=== PATIENT | male | born 1935 | race Caucasian/White ===

== ENCOUNTER 2018-02-23 14:31 | Inpatient (IN) ==
[2018-02-23 15:57] LABS: Hematocrit 42.4 % (37.5-50.1); Hemoglobin 14.5 g/dL (12.9-16.9); Mean Corpuscular HGB Conc 34.2 g/dL (31.6-35.5); Mean Corpuscular Hemoglobin 33.3 pg (28.0-33.3); Mean Corpuscular Volume 97.5 fL (83.0-100.0); Mean Platelet Volume 8.9 fL (9.4-12.4); Platelet Count 276 K/mcL (140-400); Red Blood Count 4.35 M/mcL (4.19-5.50); Red Cell Distribution Width 13.7 % (11.5-14.5)
[2018-02-23 16:15] LABS: Bilirubin,Urine Negative (Negative); Blood,Urine Small (Negative); Clarity,Urine Clear (Clear); Color,Urine Yellow (Yellow); Glucose,Urine (UA) Normal (Normal); Ketones,Urine Negative (Negative); Leukocyte Esterase,Urine Negative (Negative); Nitrite,Urine Negative (Negative); Protein,Urine Negative (Neg-Trace); Specific Gravity,Urine 1.012 (1.010-1.025); Urobilinogen,Urine Normal (Normal)
[2018-02-23 16:18] LABS: Bacteria,Urine None Seen per hpf (None-Few); Hyaline Casts,Urine None Seen per lpf (None-Few); RBC,Urine 0-3 per hpf (0-3); Squamous Epithelial Cell,Urine None Seen per lpf (None-Few); WBC,Urine 0-3 per hpf (0-3)
[2018-02-23 16:20] LABS: Alanine Aminotransferase 26 Units/L (7-52); Albumin 4.2 g/dL (3.5-5.7); Albumin/Globulin Ratio 1.4 (1.1-2.2); Alkaline Phosphatase 71 Units/L (34-104); Aspartate Amino Transferase 27 Units/L (13-39); BUN/Creatinine Ratio 16 (6-26); Bilirubin,Direct 0.2 mg/dL (0.0-0.2); Bilirubin,Indirect 0.5 mg/dL (0.0-1.2); Bilirubin,Total 0.7 mg/dL (0.3-1.0); Blood Urea Nitrogen 16 mg/dL (8-23); Calcium 9.9 mg/dL (8.6-10.3); Carbon Dioxide 27 mEq/L (23-29); Chloride 100 mEq/L (98-107); Glucose 132 mg/dL (70-105); Lipase 17 Units/L (11-82); Osmolality,Calculated 289 (280-300); Potassium 3.6 mEq/L (3.5-5.1); Sodium 138 mEq/L (136-145); Total Protein 7.2 g/dL (6.4-8.9); eGFR For African Americans > 60 (> 60); eGFR For Non-African Americans > 60 (> 60)
[2018-02-23] MEDS ORDERED: Isovue-370 500 ML INFUS..BTL IV ONE (18:01)
[2018-02-23] MEDS ORDERED: Ondansetron ODT 4 MG TAB.RAPDIS SL ONE (18:27)
--- NOTE | 2018-02-23 18:27 | Emergency Department Note ---
Disposition Clinical Impression: Abdominal pain Qualifiers: Abdominal location: upper abdomen, unspecified Qualified Code(s): R10.10 - Upper abdominal pain, unspecified Disposition: Admitted As Inpatient Condition: Good Abdominal Pain HPI - General Chief Complaint: ED Abdominal Pain Stated Complaint: "Epigastiric Pain/Nausea" Source: patient, family Limitations: no limitations Nursing Notes Reviewed: Yes Vital Signs Reviewed: Yes - History of Present Illness HPI Narrative: This is an 82 year-old male with history of HTN and IDDM who presents with epigastric abdominal pain, nonradiating and waxing/waning in intensity for the past 10 hours. He reports mild nausea. Denies any vomiting, constipation, diarrhea, blood in stool, or urinary symptoms. Patient is s/p charles and inguinal hernia repair. At the time of evaluation, the pain is quite mild. Pt Subjective Complaint: abdominal pain Onset (ago): hour(s) Consistency: intermittent Location: epigastric Pain Severity: moderate Pain Scale: 5 Quality: fullness, sharp Radiation: none Migration to: no migration Improves with: nothing Worsens with: nothing Associated symptoms: Denies: nausea, vomiting, fever, dysuria, hematemesis, hematochezia, melena - Related Data Home Medications Medication Instructions Recorded Confirmed Aspirin [Lo-Dose Aspirin EC] 81 mg PO DAILY 02/23/18 02/23/18 Atorvastatin Calcium [Lipitor] 20 mg PO DAILY 02/23/18 02/23/18 Buspirone HCl [Buspar] 10 mg PO BID 02/23/18 02/23/18 Diltiazem HCl [Diltiazem 24Hr Cd] 240 mg PO DAILY 02/23/18 02/23/18 Folic Acid 1 mg PO DAILY 02/23/18 02/23/18 Methotrexate [Otrexup] 15 mg PO ERICKSON 02/23/18 02/23/18 Potassium Chloride [Klor-Con 10] 10 meq PO DAILY 02/23/18 02/23/18 Valsartan/Hydrochlorothiazide 1 tab PO DAILY 02/23/18 02/23/18 [Diovan Hct 320-25 mg Tablet] metFORMIN [Glucophage] 500 mg PO BID 02/23/18 02/23/18 Previous Rx's Medication Instructions Recorded Omeprazole [PriLOSEC] 40 mg PO DAILY #30 cap 02/25/18 Allergies Allergy/AdvReac Type Severity Reaction Status Date / Time No Known Allergies Allergy Verified 01/10/16 09:10 All systems ED: reviewed and negative except as stated. Constitutional: Denies: fever Cardiovascular: Denies: chest pain, palpitations Respiratory: Denies: dyspnea Gastrointestinal: Reports: as per HPI, abdominal pain, nausea. Denies: vomiting , diarrhea, constipation, hematemesis, melena, hematochezia Genitourinary: Denies: dysuria Musculoskeletal: Denies: back pain Abdominal Pain PMH - Past Medical History Medical history: Reports: diabetes, GERD, hyperlipidemia, hypertension Male Surgical History: Reports: other Psychiatric history: Reports: anxiety - Social History Smoking status: Former smoker Alcohol use: Reports: none Drug use: Reports: none Physical Exam - General Limitations: no limitations General appearance: alert, in no apparent distress - Head Head exam: atraumatic - Eye Eye exam: Present: normal appearance. Absent: scleral icterus - ENT ENT exam: normal exam, mucous membranes moist - Neck Neck exam: Present: normal inspection - Respiratory Respiratory exam: Present: normal lung sounds bilaterally. Absent: respiratory distress, wheezes - Cardiovascular Cardiovascular exam: Present: regular rate, normal rhythm, normal heart sounds - Abdominal Exam Abdominal exam: Present: soft, Non-Tender. Absent: distention, guarding, rebound, rigidity - Extremities Exam Extremities exam: Present: normal inspection - Neurological Exam Neurological exam: Present: alert, oriented X3. Absent: motor sensory deficit - Psychiatric Psychiatric exam: Present: normal affect, normal mood - Skin Skin exam: Present: warm, dry, intact Course - Reevaluation(s) Reevaluation #1: Updated patient on test results. He remains comfortable, minimal abdominal pain at this time. Time: 19:02 Vital Signs Temperature 97.9 F 02/23/18 14:39 Pulse Rate 105 02/23/18 14:39 Respiratory Rate 16 02/23/18 14:39 Blood Pressure 177/103 02/23/18 14:39 O2 Sat by Pulse Oximetry 93 02/23/18 14:39 Temperature 97.6 F 02/25/18 14:42 Pulse Rate 80 02/25/18 14:42 Respiratory Rate 15 02/25/18 14:42 Blood Pressure 143/87 02/25/18 14:42 O2 Sat by Pulse Oximetry 94 02/25/18 14:42 Oxygen Delivery Oxygen Delivery Room Air Abdominal Pain - MDM Narrative Medical decision making narrative: 18:50 - As initial CT raised the possibility of perforated duodenal ulcer, we will rescan, this time with oral contrast. At shift change, I will be signing patient's care over to Dr. Bullard to receive CT results, re-assess patient, and determine disposition. - Lab Data Lab results reviewed: Yes I reviewed the patient's lab results. Result diagrams: 02/24/18 04:37 02/24/18 04:37 Lab Results 02/23/18 02/23/18 02/23/18 Range/Units 15:40 15:40 15:54 WBC 12.1 H (4.3-11.1) K/mcL RBC 4.35 (4.19-5.50) M/mcL Hgb 14.5 (12.9-16.9) g/dL Hct 42.4 (37.5-50.1) % MCV 97.5 (83.0-100.0) fL MCH 33.3 (28.0-33.3) pg MCHC 34.2 (31.6-35.5) g/dL RDW 13.7 (11.5-14.5) % Plt Count 276 (140-400) K/mcL MPV 8.9 L (9.4-12.4) fL Sodium 138 (136-145) mEq/L Potassium 3.6 (3.5-5.1) mEq/L Chloride 100 (98-107) mEq/L Carbon Dioxide 27 (23-29) mEq/L BUN 16 (8-23) mg/dL Creatinine 1.03 (0.70-1.30) mg/dL Est GFR ( Amer) > 60 (> 60) Est GFR (Non-Af Amer) > 60 (> 60) BUN/Creatinine Ratio 16 (6-26) Glucose 132 H (70-105) mg/dL POC Glucose (70-99) mg/dL Calculated Osmolality 289 (280-300) Calcium 9.9 (8.6-10.3) mg/dL Total Bilirubin 0.7 (0.3-1.0) mg/dL Direct Bilirubin 0.2 (0.0-0.2) mg/dL Indirect Bilirubin 0.5 (0.0-1.2) mg/dL AST 27 (13-39) Units/L ALT 26 (7-52) Units/L Alkaline Phosphatase 71 (34-104) Units/L Serum Total Protein 7.2 (6.4-8.9) g/dL Albumin 4.2 (3.5-5.7) g/dL Globulin 3.0 (2.4-3.5) g/dL Albumin/Globulin Ratio 1.4 (1.1-2.2) Lipase 17 (11-82) Units/L Urine Color Yellow (Yellow) Urine Clarity Clear (Clear) Urine pH 6.0 (5.0-8.0) pH Units Ur Specific [place] 1.012 (1.010-1.025) Urine Protein Negative (Neg-Trace) mg/dL Urine Glucose (UA) Normal (Normal) mg/dL Urine Ketones Negative (Negative) mg/dL Urine Blood Small H (Negative) Urine Nitrite Negative (Negative) Urine Bilirubin Negative (Negative) Urine Urobilinogen Normal (Normal) mg/dL Ur Leukocyte Esterase Negative (Negative) Urine Microscopic RBC 0-3 (0-3) per hpf Urine Microscopic WBC 0-3 (0-3) per hpf Ur Squamous Epith Cells None Seen (None-Few) per lpf Urine Bacteria None Seen (None-Few) per hpf Hyaline Casts None Seen (None-Few) per lpf 02/23/18 Range/Units 23:26 WBC (4.3-11.1) K/mcL RBC (4.19-5.50) M/mcL Hgb (12.9-16.9) g/dL Hct (37.5-50.1) % MCV (83.0-100.0) fL MCH (28.0-33.3) pg MCHC (31.6-35.5) g/dL RDW (11.5-14.5) % Plt Count (140-400) K/mcL MPV (9.4-12.4) fL Sodium (136-145) mEq/L Potassium (3.5-5.1) mEq/L Chloride (98-107) mEq/L Carbon Dioxide (23-29) mEq/L BUN (8-23) mg/dL Creatinine (0.70-1.30) mg/dL Est GFR ( Amer) (> 60) Est GFR (Non-Af Amer) (> 60) BUN/Creatinine Ratio (6-26) Glucose (70-105) mg/dL POC Glucose 173 H (70-99) mg/dL Calculated Osmolality (280-300) Calcium (8.6-10.3) mg/dL Total Bilirubin (0.3-1.0) mg/dL Direct Bilirubin (0.0-0.2) mg/dL Indirect Bilirubin (0.0-1.2) mg/dL AST (13-39) Units/L ALT (7-52) Units/L Alkaline Phosphatase (34-104) Units/L Serum Total Protein (6.4-8.9) g/dL Albumin (3.5-5.7) g/dL Globulin (2.4-3.5) g/dL Albumin/Globulin Ratio (1.1-2.2) Lipase (11-82) Units/L Urine Color (Yellow) Urine Clarity (Clear) Urine pH (5.0-8.0) pH Units Ur Specific [place] (1.010-1.025) Urine Protein (Neg-Trace) mg/dL Urine Glucose (UA) (Normal) mg/dL Urine Ketones (Negative) mg/dL Urine Blood (Negative) Urine Nitrite (Negative) Urine Bilirubin (Negative) Urine Urobilinogen (Normal) mg/dL Ur Leukocyte Esterase (Negative) Urine Microscopic RBC (0-3) per hpf Urine Microscopic WBC (0-3) per hpf Ur Squamous Epith Cells (None-Few) per lpf Urine Bacteria (None-Few) per hpf Hyaline Casts (None-Few) per lpf - Radiology Data Radiology results reviewed: Yes I reviewed the patient's radiology results. CT/CT abd pelvis w iv no oral IMPRESSION: There is a small diverticulum related to the 2nd portion of the duodenum with regional inflammatory change. Perforated duodenal ulcer is considered, with tiny foci of pneumoperitoneum present. Findings new compared to January 2017. - EKG Data EKG attestation: Yes I reviewed and interpreted this EKG. EKG shows normal: sinus rhythm Rate: tachycardia Rhythm: A.Fib [place]/QRS: normal When compared to previous EKG there are: previous EKG unavailable Interpretation: nonspecific ST-T wave changes
[2018-02-23] MEDS ORDERED: Pantoprazole 80 MG in 0.9 % Sodium Chloride 50 ML IVPB ONE (18:55)
[2018-02-23] MEDS ORDERED: 0.9 % Sodium Chloride 500 ML IVC ONE (19:04)
--- NOTE | 2018-02-23 22:53 | General Surgery Consult Note ---
Date of Encounter: 02/23/18 Time of Encounter: 22:50 Assessment and Plan (1) Duodenal diverticulum Current Visit: Yes Status: Acute 82M with suspected duodenal diverticulum, suspect that, if it did perforate, it has sealed on its own; NPO IVF PPI abx: zosyn await return of bowel function, then swallow study prior to starting diet activity as tolerated serial abdominal exams; no acute surgery or scope at this point plan for EGD as an outpatient as long as patient is stable History of Present Illness Consult date: 02/23/18 Reason for consult: abdominal pain History of present illness: 82M with a PMH significant for DM II, GERD, hyperlipidemia, hypertension s/p cholecystectomy who presents with 1-2 two week history of worsening epigastic pain with associated nausea and vomiting. No reports of fevers at home. The pain is non radiating without any identifiable alleviating or exacerbating factors. He presented to the ED with stable vital signs, tender abdomen, leukocytosis and a CT scan, which was reviewed and interpreted by me in combination with radiology reads, which was concerning for possible duodenal diverticulum that perforated. There was no extravasation of contrast identified. Surgery was consulted for management recommendations. Past Med Surg Social Fam HX - Past Medical History Medical history: diabetes, GERD, hyperlipidemia, hypertension Psychiatric history: anxiety - Past Surgical History Surgical History: cholecystectomy, herniorrhaphy, orthopedic, other - Social History Smoking Status: Former smoker Smokeless Tobacco Status: No Alcohol use: none Drug use: none - Family History Mother Hx Family Cardiac Disorders: Yes Hx Family Endocrine Disorder: Yes (DM) Brother Hx Family Cancer: Yes (lung) - Additional Family History Additional family history: non contributory Medications and Allergies Aspirin [Lo-Dose Aspirin EC] 81 mg PO DAILY 02/23/18 [History] Atorvastatin Calcium [Lipitor] 20 mg PO DAILY 02/23/18 [History] Buspirone HCl [Buspar] 10 mg PO BID 02/23/18 [History] Diltiazem HCl [Diltiazem 24Hr Cd] 240 mg PO DAILY 02/23/18 [History] Folic Acid 1 mg PO DAILY 02/23/18 [History] Methotrexate [Otrexup] 15 mg PO ERICKSON 02/23/18 [History] Potassium Chloride [Klor-Con 10] 10 meq PO DAILY 02/23/18 [History] Ranitidine HCl [Heartburn Relief] 150 mg PO BID 02/23/18 [History] Valsartan/Hydrochlorothiazide [Diovan Hct 320-25 mg Tablet] 1 tab PO DAILY 02/23 [History] metFORMIN [Glucophage] 500 mg PO BID 02/23/18 [History] 3 Allergy/AdvReac Type Severity Reaction Status Date / Time No Known Allergies Allergy Verified 01/10/16 09:10 Review of Systems All systems PM: The remainder of the systems were reviewed and are negative General Surgery Exam Initial Vital Signs Temp Pulse Resp BP Pulse Ox 97.9 F 105 16 177/103 93 02/23/18 14:39 02/23/18 14:39 02/23/18 14:39 02/23/18 14:39 02/23/18 14:39 - General physical appearance no distress - Eyes normal ocular movement - ENT normocephalic - Neck no lymphadectomy - Respiratory normal expansion, normal respiratory effort - Cardiovascular Cardiovascular exam: Present: RRR - Abdomen Abdomen general surgery: Present: soft, distended, tender (non peritoneal) Abdominal Tenderness: Present: epigastic, RUQ - Integumentary Integumentary general surgery: Present: warm and dry - Neurologic Present: deep tendon reflexes - Musculoskeletal Present: normal posture - Psychiatric Psychiatric general surgery: Present: A&Ox3 Exam Initial Vital Signs Temp Pulse Resp BP Pulse Ox 97.9 F 105 16 177/103 93 02/23/18 14:39 02/23/18 14:39 02/23/18 14:39 02/23/18 14:39 02/23/18 14:39 Results - Labs 02/23/18 15:40 02/23/18 15:40 Abnormal lab results WBC 12.1 K/mcL (4.3-11.1) H 02/23/18 15:40 MPV 8.9 fL (9.4-12.4) L 02/23/18 15:40 Glucose 132 mg/dL (70-105) H 02/23/18 15:40 Urine Blood Small (Negative) H 02/23/18 15:54 All other labs normal. - Imaging CT scan - abdomen: report reviewed, image reviewed CT scan - pelvis: report reviewed, image reviewed Consult Discharge Plan - Plan Referrals: Sonny Torre DO [Primary Care Provider] -
[2018-02-24] MEDS ORDERED: Ondansetron 4 MG/2 ML VIAL IVP PRN (04:27)
[2018-02-24] MEDS ORDERED: Dextrose Gel 15 GM/37.5 ML TUBE PO PRN ×2 (04:30)
[2018-02-24] MEDS ORDERED: 0.9 % Sodium Chloride 1,000 ML IVC SCH ×2 (04:30→13:23)
[2018-02-24] MEDS ORDERED: *HR* Dextrose 50 % in Water (Syg) 50 ML SYRINGE IVP PRN (04:30)
[2018-02-24] MEDS ORDERED: D5% in Water 1,000 ML IVC PRN (04:30)
[2018-02-24] MEDS ORDERED: Acetaminophen 325 MG TABLET PO PRN (04:34)
[2018-02-24] MEDS ORDERED: OXYCODONE Oral CONC 10 MG/0.5 ML ORAL.SYG SL PRN ×2 (04:34→14:39)
[2018-02-24] MEDS ORDERED: Naloxone 0.4 MG/ML INJ IVP PRN ×2 (04:34)
[2018-02-24 04:54] LABS: Basophils % 0.3 %; Eosinophils # 0.2 K/mcL (0.0-0.6); Hematocrit 36.9 % (37.5-50.1); Immature Granulocytes % 0.3 % (0-4); Lymphocytes # 0.9 K/mcL (0.6-4.6); Lymphocytes % 9.9 %; Mean Corpuscular HGB Conc 35.2 g/dL (31.6-35.5); Mean Corpuscular Hemoglobin 34.7 pg (28.0-33.3); Mean Corpuscular Volume 98.4 fL (83.0-100.0); Mean Platelet Volume 8.9 fL (9.4-12.4); Monocytes % 10.2 %; Neutrophils # 7.2 K/mcL (1.6-8.9); Platelet Count 233 K/mcL (140-400); Red Blood Count 3.75 M/mcL (4.19-5.50); Red Cell Distribution Width 13.5 % (11.5-14.5); Segmented Neutrophils % 77.3 %
--- NOTE | 2018-02-24 04:57 | Internal Med History&Physical ---
Date of Encounter: 02/24/18 Time of Encounter: 04:51 Internal Medicine - H&P: HPI Chief complaint: "Pain in stomach" Admitted From: Emergency Dept Plans for Post Hospital Care: Home History of present illness: Mr. Lucas is a 82 year old male who presented to ED today with abdominal pain. He states that he has had 1-2 week history of abdominal pain with intermittent N /V. Pain is generalized in abdomen and does not radiate anywhere. Nothing makes it better. Pushing on abdomen makes it worse. There is no rebound or guarding. He has PSH of cholecystectomy. Upon my arrival, he states that he does not have pain. However, during physical exam, RUQ is tender to deep palpation. He has mild leukocytosis in ED. Vital signs stable. CT abdomen showed duodenal diverticulum with possible perforation. ED physician has consulted general surgery. I appreciate their recommendations and management of acute abdominal issue. Patient has no complaints at this time. He denies fever, chills, nausea, vomiting, changes in bowel, hematochezia, melena, and hematemesis. Past Med Surg Social Fam HX - Past Medical History Attestation: Yes The following information was validated with the patient. Medical history: diabetes, GERD, hyperlipidemia, hypertension Psychiatric history: anxiety - Past Surgical History Surgical History: cholecystectomy, herniorrhaphy, orthopedic, other - Social History Smoking Status: Former smoker Smokeless Tobacco Status: No Alcohol use: none Drug use: none - Family History Mother Hx Family Cardiac Disorders: Yes Hx Family Endocrine Disorder: Yes (DM) Brother Hx Family Cancer: Yes (lung) - Additional Family History Additional family history: Family history confirmed with patient. Internal Medicine - H&P: Meds Aspirin [Lo-Dose Aspirin EC] 81 mg PO DAILY 02/23/18 [History] Atorvastatin Calcium [Lipitor] 20 mg PO DAILY 02/23/18 [History] Buspirone HCl [Buspar] 10 mg PO BID 02/23/18 [History] Diltiazem HCl [Diltiazem 24Hr Cd] 240 mg PO DAILY 02/23/18 [History] Folic Acid 1 mg PO DAILY 02/23/18 [History] Methotrexate [Otrexup] 15 mg PO ERICKSON 02/23/18 [History] Potassium Chloride [Klor-Con 10] 10 meq PO DAILY 02/23/18 [History] Ranitidine HCl [Heartburn Relief] 150 mg PO BID 02/23/18 [History] Valsartan/Hydrochlorothiazide [Diovan Hct 320-25 mg Tablet] 1 tab PO DAILY 02/23 [History] metFORMIN [Glucophage] 500 mg PO BID 02/23/18 [History] 3 Allergy/AdvReac Type Severity Reaction Status Date / Time No Known Allergies Allergy Verified 01/10/16 09:10 All Systems PM: A 10-system review of systems was performed and is negative for pertinent findings except as documented above in the HPI. - Constitutional Constitutional: no anorexia, no chills, no fatigue, no fever(s), no lethargy, no malaise, no night sweats, no weakness, no weight gain, no weight loss - EENT Eyes: no blurry vision, no change in vision, no diplopia, no dry eye, no itchy eyes, no loss of vision, no pain, no photophobia, no other visual disturbances Ears: no decreased hearing, no ear pain, no tinnitus Nose, mouth and throat: no bleeding gums, no dry mouth, no dysphagia, no facial pain, no mouth lesions, no mouth pain, no nasal congestion, no nasal discharge, no neck pain, no sinus pain, no sinus pressure, no sore throat - Cardiovascular Cardiovascular ROS IM: no chest pain, no diaphoresis, no dyspnea, no dyspnea on exertion, no edema, no irregular heart rhythm, no lightheadedness, no palpitations, no syncope - Respiratory Respiratory: no cough, no dyspnea, no hemoptysis, no dyspnea on exertion, no wheezing, no chest congestion, no excessive phlegm production - Gastrointestinal Gastrointestinal: abdominal pain, no change in bowel habits, no coffee ground emesis, no constipation, no cramping, no diarrhea, no dyspepsia, no dysphagia, no heartburn, no hematemesis, no hematochezia, no loose stools, no melena, no nausea, no vomiting - Genitourinary Genitourinary ROS male: no difficulty urinating, no dysuria, no flank pain, no hematuria, no urinary frequency, no urinary hesitancy, no urinary incontinence, no urinary urgency - Musculoskeletal Musculoskeletal ROS IM: no arthralgias, no back pain, no joint swelling, no limited range of motion, no muscle cramps, no muscle weakness, no myalgias, no neck pain, no numbness, no tingling - Integumentary Integumentary IM: no erythema, no new lesions, no rash, no skin ulcer, no sores , no jaundice - Neurological Neurological ROS: no abnormal gait, no abnormal hearing, no abnormal movements, no abnormal speech, no behavioral changes, no confusion, no dizziness, no focal weakness, no headache(s), no memory loss, no paresthesias, no vertigo, no weakness - Psychiatric Psychiatric: no anxiety, no behavioral changes, no confusion, no depression, no irritability, no mood swings - Endocrine Endocrine IM: no cold intolerance, no fatigue, no heat intolerance, no polydipsia, no polyphagia, no polyuria - Hematologic/Lymphatic Hematologic/Lymphatic: no easy bleeding, no easy bruising, no lymphadenopathy - Constitutional Vitals: Temp Pulse Resp BP Pulse Ox 97.9 F 100 17 145/85 92 02/23/18 22:02 02/23/18 22:02 02/23/18 22:02 02/23/18 22:02 02/23/18 22:02 General appearance: Present: cooperative, A&O X 3, pleasant, no acute distress, obese, answers questions appropriately - Head Head exam: Present: atraumatic, normal inspection, normocephalic - Eye Eye exam: Present: EOMI, normal appearance, PERRL. Absent: conjunctival injection, nystagmus, scleral icterus - ENT ENT exam: Present: mucous membranes moist, normal external ear exam, normal oropharynx - Neck Neck exam general surgery: Present: supple, trachea midline. Absent: lymphadenopathy, tenderness, thyromegaly - Respiratory Respiratory exam: Present: CTAB. Absent: accessory muscle use, rales, rhonchi, wheezes Additional comments: Normal WOB - Cardiovascular Cardiovascular exam: Present: RRR, +S1, +S2. Absent: diastolic murmur, gallop, rubs, systolic murmur Additional comments: No BLE edema - GI/Abdominal GI/Abdominal exam: Present: normal bowel sounds, soft, no peritoneal signs. Absent: distended, guarding, hepatomegaly, mass, rebound, splenomegaly Additional comments: Moderate TTP in RUQ with deep palpation - Neurological Exam Neurological exam: Present: alert, CN II-XII intact, oriented X3, no focal deficits, strengths equal and symetr throughout. Absent: abnormal gait, altered , motor sensory deficit, facial droop, speech deficit - Psychiatric Psychiatric exam: Present: normal affect, normal mood. Absent: agitated, anxious, depressed - Skin Skin exam: Present: dry, intact, warm. Absent: cyanosis, rash Internal Med - H&P Results - Labs CBC & Chem 7: 02/23/18 15:40 02/23/18 15:40 - VTE Reasons for not Prescribing Prophylaxis: Medical contraindication (Perforated duodenum) Documentation of Mechanical Device: Intermittent pneumatic compression device - Assessment and plan (1) Duodenal diverticulum Current Visit: Yes Status: Acute Assessment and plan: Concern for perforation on imaging. Admit as inpatient. General surgery consulted, appreciate input. We will follow their recommendations. NPO. Continue maintenance IVF. Got 80 mg IV protonix in ED. Will continue protonix 40 mg IV BID. Start IV zosyn. Swallow study before starting diet; ST has been consulted. Activity as tolerated. We will perform serial abdominal examinations. Will await further recommendations from general surgery. No anticoagulation at this time for DVT prophylaxis due to concern for perforation and bleeding. Will monitor closely. (2) HTN (hypertension) Current Visit: Yes Status: Chronic Assessment and plan: Continue home medications when taking PO. Have added PRN labetalol IV if needed , but asked nurse to notify MD prior to use. Qualifiers: Hypertension type: essential hypertension Qualified Code(s): I10 - Essential (primary) hypertension (3) HLD (hyperlipidemia) Current Visit: Yes Status: Acute Assessment and plan: Continue home medications when taking PO. Qualifiers: Hyperlipidemia type: mixed hyperlipidemia Qualified Code(s): E78.2 - Mixed hyperlipidemia (4) Type 2 diabetes mellitus without complication Current Visit: Yes Status: Acute Assessment and plan: Start accuchecks and low dose SSI QID AC/HS. Hold home metformin. 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 (6) DVT prophylaxis Current Visit: Yes Status: Acute Assessment and plan: SCDs. No anticoagulation due to concern for GI perforation and bleed. - Time Spent With Patient Total time spent is greater than 50% in coordination of care (as documented) at patient's floor/unit and/or counseling patient: less than 15 minutes
[2018-02-24 05:01] LABS: INR 1.2; Prothrombin Time 13.2 Seconds (9.4-12.1)
[2018-02-24 05:04] LABS: Activated Partial Thrombo Time 32.8 Seconds (26.0-36.0)
[2018-02-24] MEDS ORDERED: cloNIDine HCl 0.1 MG TABLET PO PRN (05:14)
[2018-02-24] MEDS ORDERED: *HR* Labetalol 20 MG/4 ML SYRINGE IVP PRN (05:16)
[2018-02-24 05:17] LABS: BUN/Creatinine Ratio 14 (6-26); Blood Urea Nitrogen 13 mg/dL (8-23); Carbon Dioxide 28 mEq/L (23-29); Chloride 101 mEq/L (98-107); Glucose 146 mg/dL (70-105); Osmolality,Calculated 287 (280-300); Potassium 3.6 mEq/L (3.5-5.1); Sodium 137 mEq/L (136-145); eGFR For African Americans > 60 (> 60); eGFR For Non-African Americans > 60 (> 60)
--- NOTE | 2018-02-24 05:34 | Emergency Department Note ---
START Narrative - START START: I examined this patient and my medical decision-making was reviewed with the Resident Physician. I agree with the documented findings, disposition and treatment plan as described except to the extent set forth below. Findings consistent with possible perforated ulcer. General surgery consult. The patient be admitted for further management to hospitalist team with consults to general surgery.
[2018-02-24] MEDS: Insulin LISPRO 300 UNITS/3 ML VIAL SQ SCH ×4 (05:42→23:49)
[2018-02-24] MEDS: Piperacillin/Tazobactam 3.375 GM in 0.9 % Sodium Chloride Mini Bag 100 ML IVPB SCH ×3 (05:52→19:50)
[2018-02-24] MEDS: Pantoprazole 40 MG VIAL IVP SCH ×2 (05:52→19:49)
[2018-02-24] MEDS ORDERED: Famotidine 20 MG TABLET PO SCH (09:00)
[2018-02-24] MEDS: hydroCHLOROthiazide 25 MG TABLET PO SCH (09:04)
--- NOTE | 2018-02-24 09:04 | General Surgery Progress Note ---
<Pernell Mendez - Last Filed: 02/24/18 09:12> Date of Encounter: 02/24/18 Time of Encounter: 08:45 - Assessment and Plan (1) Duodenal diverticulum Current Visit: Yes Status: Acute 82M with suspected duodenal diverticulum, suspect that, if it did perforate, it has sealed on its own; NPO IVF PPI abx: zosyn await return of bowel function, then swallow study prior to starting diet activity as tolerated serial abdominal exams; no acute surgery or scope at this point plan for EGD as an outpatient as long as patient is stable Subjective Narrative: Patient complains of abdominal pain in the right upper and left upper quadrants , with the right upper quadrant worse than the left. He says at rest the pain is about a 4 out of 10 but when palpated is at 7 out of 10. He denies any nausea or vomiting. Denies having any bowel movement but says he has been able to pass gas. Denies any fevers, chills, chest pain, or shortness of breath. Objective VITAL SIGNS: Reviewed. See [facility] GENERAL: no apparent distress HEENT: [Normocephalic, PER, EOMi, oropharynx pink/moist, no JVD noted.] CV: b/l rad pulses 2+, RRR, no murmurs or gallops, no JVD RESPIRATORY: CTAB without wheezes, rales, or rhonchi ABD: soft, mild tenderness in RUQ and LUQ with deep palpation (R worse than L), no rebound/guarding/rigidity, no peritoneal signs. Normal bowel sounds present. EXTREMITY: grossly normal motor function, no pedal edema, peripheral pulses 2+ b /l NEUROLOGIC EXAM: AOx3, obeys commands, no speech deficits. PSYCHIATRIC: normal mood and affect SKIN: no gross lesions, rashes, or skin changes Vital Signs - Last 8 Hours Temp Pulse Resp BP Pulse Ox 02/24/18 04:52 98.5 F 82 17 131/71 92 Intake and Output 02/23/18 02/24/18 02/24/18 23:59 07:59 15:59 Intake Total 0 / 0 Output Total 400 / 400 Balance -400 / -400 Intake: Oral 0 / 0 Output: Urine 400 / 400 Other: Blood Glucose* 131 - Labs 02/24/18 04:37 02/24/18 04:37 Diabetes panel 02/24/18 Range/Units 04:37 Sodium 137 (136-145) mEq/L Potassium 3.6 (3.5-5.1) mEq/L Chloride 101 (98-107) mEq/L Carbon Dioxide 28 (23-29) mEq/L BUN 13 (8-23) mg/dL Creatinine 0.96 (0.70-1.30) mg/dL Glucose 146 H (70-105) mg/dL Calcium 9.0 (8.6-10.3) mg/dL Calcium panel 02/24/18 Range/Units 04:37 Calcium 9.0 (8.6-10.3) mg/dL Pituitary panel 02/24/18 Range/Units 04:37 Sodium 137 (136-145) mEq/L Potassium 3.6 (3.5-5.1) mEq/L Chloride 101 (98-107) mEq/L Carbon Dioxide 28 (23-29) mEq/L BUN 13 (8-23) mg/dL Creatinine 0.96 (0.70-1.30) mg/dL Glucose 146 H (70-105) mg/dL Calcium 9.0 (8.6-10.3) mg/dL Adrenal panel 02/24/18 Range/Units 04:37 Sodium 137 (136-145) mEq/L Potassium 3.6 (3.5-5.1) mEq/L Chloride 101 (98-107) mEq/L Carbon Dioxide 28 (23-29) mEq/L BUN 13 (8-23) mg/dL Creatinine 0.96 (0.70-1.30) mg/dL Glucose 146 H (70-105) mg/dL Calcium 9.0 (8.6-10.3) mg/dL - VTE Reasons for not Prescribing Prophylaxis: Medical contraindication (Perforated duodenum) Documentation of Mechanical Device: Intermittent pneumatic compression device Consult Discharge Plan - Plan Referrals: Sonny Torre DO [Primary Care Provider] - <Bart Tyler - Last Filed: 02/24/18 15:30> Date of Encounter: 02/24/18 - Assessment and Plan (1) Duodenal diverticulum Current Visit: Yes Status: Acute Objective Vital Signs - Last 8 Hours Temp Pulse Resp BP Pulse Ox 02/24/18 12:08 98.3 F 76 18 121/62 93 Intake and Output 02/23/18 02/24/18 02/24/18 23:59 07:59 15:59 Intake Total 0 / 0 Output Total 400 / 400 200 / 200 Balance -400 / -400 -200 / -200 Intake: Oral 0 / 0 Output: Urine 400 / 400 200 / 200 Other: Blood Glucose* 131 - Labs 02/24/18 04:37 02/24/18 04:37 Diabetes panel 02/24/18 02/24/18 Range/Units 04:37 04:37 Sodium 137 (136-145) mEq/L Potassium 3.6 (3.5-5.1) mEq/L Chloride 101 (98-107) mEq/L Carbon Dioxide 28 (23-29) mEq/L BUN 13 (8-23) mg/dL Creatinine 0.96 (0.70-1.30) mg/dL Glucose 146 H (70-105) mg/dL Hemoglobin A1c 7.5 H ( - 5.6) % Calcium 9.0 (8.6-10.3) mg/dL Calcium panel 02/24/18 Range/Units 04:37 Calcium 9.0 (8.6-10.3) mg/dL Pituitary panel 02/24/18 Range/Units 04:37 Sodium 137 (136-145) mEq/L Potassium 3.6 (3.5-5.1) mEq/L Chloride 101 (98-107) mEq/L Carbon Dioxide 28 (23-29) mEq/L BUN 13 (8-23) mg/dL Creatinine 0.96 (0.70-1.30) mg/dL Glucose 146 H (70-105) mg/dL Calcium 9.0 (8.6-10.3) mg/dL Adrenal panel 02/24/18 Range/Units 04:37 Sodium 137 (136-145) mEq/L Potassium 3.6 (3.5-5.1) mEq/L Chloride 101 (98-107) mEq/L Carbon Dioxide 28 (23-29) mEq/L BUN 13 (8-23) mg/dL Creatinine 0.96 (0.70-1.30) mg/dL Glucose 146 H (70-105) mg/dL Calcium 9.0 (8.6-10.3) mg/dL - Attending Attestation I have personally seen and examined the patient. I have reviewed pertinent labs , imaging, progress notes, including this one. I agree with the above assessment and plan and wish to include the following... 82M with concern for perforated diverticulum of the 2nd portion of the duodenum ; CT with PO contrast demonstrates no extravasation; currently with bowel function; recommend UGI; if no evidence of leak, then can begin CLD and advance diet as tolerated;
[2018-02-24] MEDS: Folic Acid 1 MG TABLET PO SCH (09:05)
[2018-02-24] MEDS: Diltiazem CD (24hr) 240 MG CAPSULE PO SCH (09:05)
[2018-02-24] MEDS: Valsartan 160 MG TABLET PO SCH (09:05)
[2018-02-24 09:16] LABS: Estimated Average Glucose 169 mg/dl; Hemoglobin A1C 7.5 %
--- NOTE | 2018-02-24 10:28 | Event Note ---
Date of Encounter: 02/24/18 Time of Encounter: 10:27 Feels better this morning. Abdominal pain improving. No nausea or vomiting. No hematemesis or melena. We will advance diet according to surgery and speech therapy recommendations.
--- NOTE | 2018-02-24 16:27 | Electrocardiograph Report ---
[place] [id number] Test Date: 2018-02-23 Pat Name: Quoc Lucas Department: 104 Room: 3A52 Gender: M [employer]: MILEY : 1935 Requested By: Kingston Guerra Order Number: [id number] Reading MD: Noy Fortune Measurements Intervals [place] Rate: 106 P: 55 SD: 154 QRS: 24 QRSD: 89 T: 36 QT: 321 QTc: 383 Interpretive Statements SINUS TACHYCARDIA POSSIBLE INFERIOR MYOCARDIAL INFARCTION, PROBABLY OLD Electronically Signed On 02-24-2018 16:25:38 EDT by Noy Fortune
[2018-02-25] MEDS: Piperacillin/Tazobactam 3.375 GM in 0.9 % Sodium Chloride Mini Bag 100 ML IVPB SCH ×2 (04:14→13:11)
[2018-02-25] MEDS: Insulin LISPRO 300 UNITS/3 ML VIAL SQ SCH ×2 (06:12→12:42)
[2018-02-25] MEDS: Pantoprazole 40 MG VIAL IVP SCH (06:15)
--- NOTE | 2018-02-25 09:40 | General Surgery Progress Note ---
<Pernell Mendez - Last Filed: 02/25/18 12:36> Date of Encounter: 02/25/18 Time of Encounter: 08:30 - Assessment and Plan (1) Duodenal diverticulum Current Visit: Yes Status: Acute 82 M with suspected duodenal diverticulum, suspect that, if it did perforate, it has sealed on its own; No evidence of bowel obstruction or perforation on upper GI series. Mild reflux. Advance to clear liquids. Can advance diet afterwards if able to tolerate. IVF PPI abx: zosyn activity as tolerated serial abdominal exams; no acute surgery or scope at this point plan for EGD as an outpatient as long as patient is stable Surgery will sign off for this patient at this point. Upper GI Series 02/25/18 08:00 IMPRESSION: 1. No evidence of bowel obstruction or duodenal perforation. 2. Mild delayed gastric emptying and findings of the 1st portion of the duodenum suggesting duodenitis. 3. Mild gastroesophageal reflux. D/ / Adama Araujo MD / Adama Araujo MD Interpreting Provider: Adama Araujo MD Subjective Narrative: Patient admits to mid epigastric pain that has improved since yesterday. He says that he had 1 bowel movement yesterday however it was unverified by nurse. Amidst passing gas. Denies any fever or chills. Denies any nausea or vomiting. Denies any chest pain or shortness of breath. Objective VITAL SIGNS: Reviewed. See [facility] GENERAL: no apparent distress. HEENT: [Normocephalic, PER, EOMi, oropharynx pink/moist, no JVD noted.] CV: b/l rad pulses 2+, RRR, no murmurs or gallops, no JVD RESPIRATORY: CTAB without wheezes, rales, or rhonchi ABD: soft, mid-epigastric tenderness with deep palpation, no rebound/guarding/ rigidity, no peritoneal signs. Normal bowel sounds. EXTREMITY: grossly normal motor function, no pedal edema, peripheral pulses 2+ b /l NEUROLOGIC EXAM: AOx3, obeys commands, no speech deficits. PSYCHIATRIC: normal mood and affect SKIN: no gross lesions, rashes, or skin changes Vital Signs - Last 8 Hours Temp Pulse Resp BP Pulse Ox 05/17/18 08:30 94 02/25/18 07:15 98.2 F 85 17 136/82 94 02/25/18 05:31 98.1 F 78 15 154/71 93 Intake and Output 02/24/18 02/25/18 02/25/18 23:59 07:59 15:59 Intake Total 0 / 0 0 / 0 Output Total 400 / 400 200 / 200 Balance -400 / -400 -200 / -200 Intake: Oral 0 / 0 0 / 0 Output: Urine 400 / 400 200 / 200 Other: Meal NPO Percent of Meal Consumed 0% Stool Size Small Stool Consistency loose soft Stool Color Brown # Voids 1 1 # Bowel Movements 0 Blood Glucose* 93 95 - Labs 02/24/18 04:37 02/24/18 04:37 - VTE Reasons for not Prescribing Prophylaxis: Medical contraindication (Perforated duodenum) Documentation of Mechanical Device: Intermittent pneumatic compression device Consult Discharge Plan - Plan Referrals: Sonny Torre DO [Primary Care Provider] - <Bart Tyler - Last Filed: 02/25/18 13:00> Date of Encounter: 02/25/18 - Assessment and Plan (1) Duodenal diverticulum Current Visit: Yes Status: Acute Objective Vital Signs - Last 8 Hours Temp Pulse Resp BP Pulse Ox 02/25/18 10:14 97.9 F 104 15 154/88 96 02/25/18 08:30 94 02/25/18 07:15 98.2 F 85 17 136/82 94 02/25/18 05:31 98.1 F 78 15 154/71 93 Intake and Output 02/24/18 02/25/18 02/25/18 23:59 07:59 15:59 Intake Total 0 / 0 0 / 0 100 / 100 Output Total 400 / 400 200 / 200 Balance -400 / -400 -200 / -200 100 / 100 Intake: IV Fluids 100 / 100 Zosyn 3.375 GM In 0.9 % Sodium 100 / 100 Chloride (Mini-Bag +) 100 ML @ 25 mls/hr IVPB Q8H [facility] Rx#: [id number] Oral 0 / 0 0 / 0 0 / 0 Output: Urine 400 / 400 200 / 200 Other: Meal NPO Percent of Meal Consumed 0% Stool Size Moderate Stool Consistency liquid Stool Color Brown # Voids 1 1 2 # Bowel Movements 0 2 Blood Glucose* 93 95 95 - Labs 02/24/18 04:37 02/24/18 04:37 - Attending Attestation I have personally seen and examined the patient. I have reviewed pertinent labs , imaging, progress notes, including this one. I agree with the above assessment and plan and wish to include the following... advance diet as tolerated; okay for discharge from surgery standpoint; follow up in 2 weeks for EGD
[2018-02-25] MEDS: hydroCHLOROthiazide 25 MG TABLET PO SCH (10:37)
[2018-02-25] MEDS: Valsartan 160 MG TABLET PO SCH (10:38)
[2018-02-25] MEDS: Folic Acid 1 MG TABLET PO SCH (10:38)
[2018-02-25] MEDS: Diltiazem CD (24hr) 240 MG CAPSULE PO SCH (10:38)
[2018-02-25] MEDS ORDERED: D5% in Water 1,000 ML IVC PRN (14:12)
--- NOTE | 2018-02-25 14:35 | Discharge Summary ---
- NOTES TO OUTPATIENT PROVIDER Notes to Outpatient Provider: Patient initially hospitalized after presenting with abdominal pain. CT scan showed dilated duodenal diverticulum with possible perforation. Evaluated by surgery. No clear signs of perforation on examination. May have sealed on its own. Underwent upper GI series today which showed no extravasation of contrast. Patient started on diet and is tolerating well. No longer having abdominal pain at this time. Stable to be discharged home. He will follow-up with EGD as outpatient. Date of Encounter: 02/25/18 Time of Encounter: 14:34 - Discharge Diagnosis (1) Duodenal diverticulum Priority: Primary Status: Acute (2) HTN (hypertension) Priority: Secondary Status: Chronic Qualifiers: Hypertension type: essential hypertension Qualified Code(s): I10 - Essential (primary) hypertension (3) HLD (hyperlipidemia) Priority: Secondary Status: Acute Qualifiers: Hyperlipidemia type: mixed hyperlipidemia Qualified Code(s): E78.2 - Mixed hyperlipidemia (4) Type 2 diabetes mellitus without complication Priority: Secondary Status: Acute Qualifiers: Diabetes mellitus detention insulin use: without computer terminal operator use Qualified Code(s): E11.9 - Type 2 diabetes mellitus without complications (5) Psoriasis Priority: Secondary Status: Acute (6) Duodenitis Priority: Secondary Status: Acute (7) DVT prophylaxis Priority: Secondary Status: Acute Hospital course: Mr. Lucas is a 82 year old male patient with history of diabetes, hypertension and hyperlipidemia who was initially hospitalized after presenting with abdominal pain. CT scan in the ER showed dilated duodenal diverticulum with possible perforation. He was evaluated by surgery. No clear signs of perforation on examination. Per surgery, perforation may have sealed on its own. He then underwent upper GI series today which showed no extravasation of contrast. He did have mild reflux. Patient was then started on clear liquid diet and is tolerating well. He is clinically stable to be discharged home on a liquid diet. He will follow-up with surgery for EGD as an outpatient. 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 - Time Spent with Patient Total time spent providing and/or coordinating discharge services: Less than 30 minutes (25 min) - Discharge Medications Prescriptions: Omeprazole [PriLOSEC] 40 mg PO DAILY #30 cap Home Medications: Aspirin [Lo-Dose Aspirin EC] 81 mg PO DAILY 02/23/18 [History] Atorvastatin Calcium [Lipitor] 20 mg PO DAILY 02/23/18 [History] Buspirone HCl [Buspar] 10 mg PO BID 02/23/18 [History] Diltiazem HCl [Diltiazem 24Hr Cd] 240 mg PO DAILY 02/23/18 [History] Folic Acid 1 mg PO DAILY 02/23/18 [History] Methotrexate [Otrexup] 15 mg PO ERICKSON 02/23/18 [History] Potassium Chloride [Klor-Con 10] 10 meq PO DAILY 02/23/18 [History] Valsartan/Hydrochlorothiazide [Diovan Hct 320-25 mg Tablet] 1 tab PO DAILY 02/23 [History] metFORMIN [Glucophage] 500 mg PO BID 02/23/18 [History] Omeprazole [PriLOSEC] 40 mg PO DAILY #30 cap 02/25/18 [Rx] Allergies/Adverse Reactions: 3 Allergy/AdvReac Type Severity Reaction Status Date / Time No Known Allergies Allergy Verified 01/10/16 09:10 Date of admission: 02/24/18 04:34 Primary care physician: Sonny Torre Consults: Surgery Discharging clinician: Terell Leal Anticipated date of discharge: 02/25/18 - Constitutional Vitals: Temp Pulse Resp BP Pulse Ox 97.9 F 104 15 154/88 96 02/25/18 10:14 02/25/18 10:14 02/25/18 10:14 02/25/18 10:14 02/25/18 10:14 General appearance: Present: cooperative, A&O X 3, pleasant, no acute distress, obese, answers questions appropriately - Neck Neck exam general surgery: Present: supple, trachea midline. Absent: lymphadenopathy - Respiratory Respiratory exam: Present: CTAB. Absent: accessory muscle use, rales, rhonchi, wheezes - Cardiovascular Cardiovascular exam: Present: RRR, +S1, +S2. Absent: diastolic murmur, gallop, rubs, systolic murmur - GI/Abdominal GI/Abdominal exam: Present: normal bowel sounds, soft, no peritoneal signs. Absent: distended, tenderness - Extremities Exam Extremities exam: Present: warm, radial pulses palpable and symmetrical. Absent : calf tenderness, cyanotic, pedal edema - Neurological Exam Neurological exam: Present: CN II-XII intact, oriented X3, no focal deficits. Absent: facial droop, speech deficit - Patient Status Disposition: Home, Self-Care Condition: Good Functional capacity at discharge: independent ambulation Overall status at discharge: patient is progressing back to baseline - Discharge Instructions Instructions: Chronic Hypertension (DC) Follow Up With: Bart Tyler MD [Non-Partnered Physician] - 03/10/18 3:05 pm (In 1-2 weeks for EGD as outpatient) Sonny Torre DO [Primary Care Provider] - 03/04/18 2:30 pm (In 1-2 weeks) - Diet and Activity Activity: increase activity as tolerated Diet: advance to your usual diet (As tolerated), low fat, low cholesterol, low salt diet - VTE Reasons for not Prescribing Prophylaxis: Medical contraindication (Perforated duodenum) Documentation of Mechanical Device: Intermittent pneumatic compression device
[2018-02-25 14:43] VITALS: BP 143/87
[2018-02-25] MEDS ORDERED: Insulin LISPRO 300 UNITS/3 ML VIAL SQ SCH ×2 (16:30→21:00)
[2018-02-25] MEDS ORDERED: Famotidine 20 MG TABLET PO SCH (21:00)
== END 2018-02-25 16:01 | disposition home or self-care (01) | DRG 392 ==
LOC: EMEROO 14:31 → 3ANU 14:31
PROVIDERS: ADMIT Internal Medicine; ATTEND Internal Medicine

== ENCOUNTER 2020-02-22 13:24 | Observation (INO) ==
[2020-02-22] MEDS ORDERED: *HR* HYDROcodone/Acet 5/325 mg TABLET PO PRN (16:48)
[2020-02-22] MEDS ORDERED: *HR* OxyCODONE Immed Rel 5 MG TABLET PO PRN (16:48)
[2020-02-22] MEDS ORDERED: *HR* Promethazine 25 MG/ML VIAL IVP PRN (16:48)
[2020-02-22] MEDS ORDERED: Naloxone 0.4 MG/ML INJ IVP PRN (16:48)
[2020-02-22] MEDS ORDERED: Dextrose Gel 15 GM/37.5 ML TUBE PO PRN ×2 (16:52)
[2020-02-22] MEDS ORDERED: D5% in Water 1,000 ML IVC PRN (16:52)
[2020-02-22] MEDS ORDERED: *HR* Dextrose 50 % in Water (Syg) 50 ML SYRINGE IVP PRN (16:52)
[2020-02-22 17:56] LABS: Hematocrit 40.2 % (37.5-50.1); Hemoglobin 13.3 g/dL (12.9-16.9); Mean Corpuscular HGB Conc 33.1 g/dL (31.6-35.5); Mean Corpuscular Hemoglobin 31.9 pg (28.0-33.3); Mean Corpuscular Volume 96.4 fL (83.0-100.0); Platelet Count 238 K/mcL (140-400); Red Blood Count 4.17 M/mcL (4.19-5.50); Red Cell Distribution Width 13.7 % (11.5-14.5); White Blood Count 10.7 K/mcL (4.3-11.1)
[2020-02-22 18:02] LABS: INR 1.1; Prothrombin Time 12.4 Seconds (9.4-12.1)
[2020-02-22 18:04] LABS: Activated Partial Thrombo Time 37.1 Seconds (26.0-36.0)
[2020-02-22 18:16] LABS: BUN/Creatinine Ratio 14 (6-26); Blood Urea Nitrogen 13 mg/dL (8-23); Calcium 8.9 mg/dL (8.6-10.3); Carbon Dioxide 25 mEq/L (23-29); Chloride 95 mEq/L (98-107); Glucose 198 mg/dL (70-105); Osmolality,Calculated 276 (280-300); Potassium 3.6 mEq/L (3.5-5.1); Sodium 130 mEq/L (136-145); eGFR For African Americans > 60 (> 60); eGFR For Non-African Americans > 60 (> 60)
[2020-02-22] MEDS: *HR* Heparin 5,000 UNIT/ML VIAL SQ SCH (18:36)
[2020-02-22 19:06] LABS: Estimated Average Glucose 192 mg/dl
[2020-02-22] MEDS ORDERED: *HR* Metoprolol 5 MG/5 ML VIAL IVP ONE (19:26)
[2020-02-23 04:15] LABS: Basophils % 0.2 %; Eosinophils # 0.1 K/mcL (0.0-0.6); Eosinophils % 0.7 %; Hematocrit 36.6 % (37.5-50.1); Hemoglobin 12.4 g/dL (12.9-16.9); Immature Granulocytes % 0.3 % (0-4); Lymphocytes # 0.8 K/mcL (0.6-4.6); Mean Corpuscular HGB Conc 33.9 g/dL (31.6-35.5); Mean Corpuscular Volume 94.3 fL (83.0-100.0); Mean Platelet Volume 9.3 fL (9.4-12.4); Monocytes # 0.8 K/mcL (0.0-1.3); Monocytes % 8.2 %; Neutrophils # 7.5 K/mcL (1.6-8.9); Platelet Count 240 K/mcL (140-400); Red Blood Count 3.88 M/mcL (4.19-5.50); Red Cell Distribution Width 13.7 % (11.5-14.5); Segmented Neutrophils % 81.6 %; White Blood Count 9.2 K/mcL (4.3-11.1)
[2020-02-23 04:35] LABS: Alanine Aminotransferase 57 Units/L (7-52); Albumin/Globulin Ratio 1.5 (1.1-2.2); Alkaline Phosphatase 73 Units/L (34-104); Aspartate Amino Transferase 53 Units/L (13-39); BUN/Creatinine Ratio 13 (6-26); Bilirubin,Total 0.7 mg/dL (0.3-1.0); Blood Urea Nitrogen 11 mg/dL (8-23); Calcium 8.8 mg/dL (8.6-10.3); Carbon Dioxide 30 mEq/L (23-29); Chloride 92 mEq/L (98-107); Globulin 2.7 g/dL (2.4-3.5); Glucose 178 mg/dL (70-105); Magnesium 1.7 mg/dL (1.6-2.6); Osmolality,Calculated 266 (280-300); Potassium 3.8 mEq/L (3.5-5.1); Sodium 126 mEq/L (136-145); Total Protein 6.7 g/dL (6.4-8.9); eGFR For African Americans > 60 (> 60); eGFR For Non-African Americans > 60 (> 60)
[2020-02-23] MEDS: *HR* Heparin 5,000 UNIT/ML VIAL SQ SCH ×2 (04:51→17:09)
[2020-02-23] MEDS: Insulin LISPRO 300 UNITS/3 ML VIAL SQ SCH ×3 (07:34→17:01)
[2020-02-23] MEDS: Folic Acid 1 MG TABLET PO SCH (07:35)
[2020-02-23] MEDS: DilTIAZem CD (24hr) 240 MG CAP.ER.24H PO SCH (07:39)
[2020-02-23] MEDS ORDERED: Acetaminophen 325 MG TABLET PO PRN (08:02)
[2020-02-23] MEDS ORDERED: Valsartan 320 MG, hydroCHLOROthiazide 25 MG PO SCH (09:00)
[2020-02-23] MEDS ORDERED: Perflutren Lipid Microsphere 1.3 ML in 0.9 % Sodium Chloride 8.7 ML IVP ONE (13:53)
[2020-02-23] MEDS: Valsartan 160 MG TABLET PO SCH (15:20)
[2020-02-23] MEDS ORDERED: Ropivacaine/PF 0.5% 30 ML VIAL ONE (19:20)
[2020-02-23] MEDS ORDERED: ROPIVACAINE/PF/NS 0.25% 1 EACH SYRINGE INTRAART ONE (19:20)
[2020-02-23] MEDS ORDERED: hydroCHLOROthiazide 25 MG TABLET PO ONE (19:26)
[2020-02-23] MEDS ORDERED: Lidocaine -MPF 2% 2 ML VIAL ONE (19:34)
[2020-02-23] MEDS ORDERED: *HR* Propofol 200 MG/20 ML VIAL IVP ONE ×3 (19:34→21:36)
[2020-02-23] MEDS ORDERED: *HR* FentaNYL (PF) 100 MCG/2 ML VIAL ONE (19:34)
[2020-02-23] MEDS ORDERED: Ondansetron 4 MG/2 ML VIAL ONE (20:10)
[2020-02-23] MEDS ORDERED: Ondansetron 4 MG/2 ML VIAL IVP ONE (20:21)
[2020-02-23] MEDS ORDERED: *HR* OxyCODONE Immed Rel 5 MG TABLET PO PRN (20:21)
[2020-02-23] MEDS ORDERED: ceFAZolin 2,000 MG in Water for inj. (sterile) 20 ML IVP ONE (20:30)
[2020-02-23] MEDS ORDERED: EPHEDrine 50 MG/ML VIAL ONE (20:42)
[2020-02-23] MEDS ORDERED: Ringers Solution, Lactated 1,000 ML ONE (22:27)
[2020-02-24] MEDS: *HR* Heparin 5,000 UNIT/ML VIAL SQ SCH (05:04)
[2020-02-24 07:39] LABS: Hemoglobin 12.3 g/dL (12.9-16.9); Immature Granulocytes % 0.3 % (0-4); Lymphocytes # 0.3 K/mcL (0.6-4.6); Lymphocytes % 4.6 %; Mean Corpuscular HGB Conc 33.2 g/dL (31.6-35.5); Mean Corpuscular Hemoglobin 32.2 pg (28.0-33.3); Mean Corpuscular Volume 96.9 fL (83.0-100.0); Mean Platelet Volume 9.6 fL (9.4-12.4); Monocytes # 0.2 K/mcL (0.0-1.3); Monocytes % 3.1 %; Neutrophils # 6.2 K/mcL (1.6-8.9); Platelet Count 226 K/mcL (140-400); Red Blood Count 3.82 M/mcL (4.19-5.50); Red Cell Distribution Width 13.8 % (11.5-14.5); White Blood Count 6.8 K/mcL (4.3-11.1)
[2020-02-24 08:02] LABS: Alanine Aminotransferase 42 Units/L (7-52); Albumin/Globulin Ratio 1.4 (1.1-2.2); Alkaline Phosphatase 73 Units/L (34-104); Aspartate Amino Transferase 37 Units/L (13-39); BUN/Creatinine Ratio 13 (6-26); Bilirubin,Direct 0.2 mg/dL (0.0-0.2); Bilirubin,Indirect 0.4 mg/dL (0.0-1.0); Bilirubin,Total 0.6 mg/dL (0.3-1.0); Blood Urea Nitrogen 13 mg/dL (8-23); Calcium 9.2 mg/dL (8.6-10.3); Carbon Dioxide 26 mEq/L (23-29); Chloride 96 mEq/L (98-107); Globulin 2.8 g/dL (2.4-3.5); Glucose 238 mg/dL (70-105); Magnesium 1.9 mg/dL (1.6-2.6); Osmolality,Calculated 282 (280-300); Phosphorous 3.4 mg/dL (2.7-4.5); Potassium 3.7 mEq/L (3.5-5.1); Sodium 132 mEq/L (136-145); Total Protein 6.8 g/dL (6.4-8.9); eGFR For African Americans > 60 (> 60); eGFR For Non-African Americans > 60 (> 60)
[2020-02-24] MEDS: Valsartan 160 MG TABLET PO SCH (08:02)
[2020-02-24] MEDS: DilTIAZem CD (24hr) 240 MG CAP.ER.24H PO SCH (08:03)
[2020-02-24] MEDS: Folic Acid 1 MG TABLET PO SCH (08:03)
[2020-02-24] MEDS: Insulin LISPRO 300 UNITS/3 ML VIAL SQ SCH ×2 (08:07→12:07)
[2020-02-24] MEDS ORDERED: hydroCHLOROthiazide 25 MG TABLET PO SCH (09:00)
[2020-02-24 10:56] VITALS: BP 122/68
[2020-02-26] MEDS ORDERED: *HR* Methotrexate 2.5 MG TABLET PO SCH (17:12)
== END 2020-02-24 14:38 | disposition home health service (06) ==
LOC: EMEROOARM 13:24 → 3NENU 13:24 → SUATTDRO 16:51 → 3NENU 18:18
PROVIDERS: ADMIT Internal Medicine; ATTEND Internal Medicine

== ENCOUNTER 2022-06-26 15:58 | Inpatient (IN) ==
[2022-06-26 18:43] LABS: Basophils % 0.4 %; Eosinophils % 0.1 %; Hematocrit 32.1 % (37.5-50.1); Hemoglobin 10.5 g/dL (12.9-16.9); Immature Granulocytes % 0.4 % (0-4); Lymphocytes # 1.3 K/mcL (0.6-4.6); Lymphocytes % 19.3 %; Mean Corpuscular HGB Conc 32.7 g/dL (31.6-35.5); Mean Corpuscular Hemoglobin 32.7 pg (28.0-33.3); Monocytes # 0.6 K/mcL (0.0-1.3); Monocytes % 8.9 %; Neutrophils # 4.8 K/mcL (1.6-8.9); Platelet Count 242 K/mcL (140-400); Red Blood Count 3.21 M/mcL (4.19-5.50); Red Cell Distribution Width 18.3 % (11.5-14.5); Segmented Neutrophils % 70.9 %; White Blood Count 6.7 K/mcL (4.3-11.1)
[2022-06-26 19:05] LABS: Albumin 3.8 g/dL (3.5-5.7); Albumin/Globulin Ratio 1.1 (1.1-2.2); Bilirubin,Total 0.3 mg/dL (0.3-1.0); Calcium 9.4 mg/dL (8.6-10.3); Globulin 3.5 g/dL (2.4-3.5); Potassium 5.4 mEq/L (3.5-5.1); Total Protein 7.3 g/dL (6.4-8.9)
[2022-06-26 19:19] LABS: Troponin I 7.65 ng/mL (< 0.04)
[2022-06-26] MEDS ORDERED: 0.9 % Sodium Chloride 1,000 ML IV ONE (19:41)
[2022-06-26] MEDS ORDERED: Calcium Gluconate 1gm/50mL 1 GM/50 ML BAG IVPB ONE (19:56)
[2022-06-26 20:07] LABS: Influenza A PCR Negative (Negative); Influenza B PCR Negative (Negative); Resp. Syncytial Virus PCR Negative (Negative)
[2022-06-26 20:10] LABS: SARS-CoV-2 by PCR (In House) Positive (Negative)
[2022-06-26 20:33] LABS: Bilirubin,Urine Negative (Negative); Blood,Urine Negative (Negative); Clarity,Urine Clear (Clear); Color,Urine Yellow (Yellow); Glucose,Urine (UA) >=1000 mg/dL (Normal); Hyaline Casts,Urine Many per lpf (None Seen); Ketones,Urine Trace mg/dL (Negative); Leukocyte Esterase,Urine Negative (Negative); Mucus,Urine Few per lpf (None-Few); Nitrite,Urine Negative (Negative); PH,Urine 5.5 pH Units (5.0-8.0); Protein,Urine 70 mg/dL (Neg-Trace); RBC,Urine 0-3 per hpf (0-3); Specific Gravity,Urine 1.028 (1.010-1.025); Squamous Epithelial Cell,Urine Few per hpf (None-Few); Urobilinogen,Urine Normal (Normal); WBC,Urine 0-3 per hpf (0-3)
[2022-06-26] MEDS ORDERED: *HR* Heparin 5,000 UNIT/ML VIAL IVP PRN ×2 (21:25)
[2022-06-26] MEDS ORDERED: *HR* Heparin 5,000 UNIT/ML VIAL IVP ONE (21:25)
[2022-06-26] MEDS ORDERED: Heparin 25,000UNIT/250ML 1/2NS 25,000 UNIT/250 ML IV.SOLN IVC SCH (21:30)
[2022-06-26] MEDS ORDERED: Naloxone 0.4 MG/ML INJ IVP PRN (21:30)
[2022-06-26] MEDS ORDERED: Ondansetron ODT 4 MG TAB.RAPDIS SL PRN (21:30)
[2022-06-26] MEDS ORDERED: Aspirin 325 MG TABLET PO ONE (21:36)
[2022-06-26] MEDS ORDERED: D5% in Water 1,000 ML IVC PRN (21:39)
[2022-06-26] MEDS ORDERED: Dextrose Gel 15 GM/37.5 ML TUBE PO PRN ×2 (21:39)
[2022-06-26] MEDS ORDERED: *HR* Dextrose 50 % in Water (Syg) 50 ML SYRINGE IVP PRN (21:39)
[2022-06-26 22:21] LABS: INR 1.9; Prothrombin Time 20.9 Seconds (9.4-12.1)
[2022-06-26 22:23] LABS: Heparin anti-factor XA UFH 1.71 IU/mL (0.30-0.70)
[2022-06-26] MEDS ORDERED: Insulin Human Regular 10 UNIT in 0.9 % Sodium Chloride 10 ML IV ONE (22:25)
[2022-06-26] MEDS ORDERED: *HR* Dextrose 50 % in Water (Syg) 50 ML SYRINGE IVP ONE (22:25)
[2022-06-26] MEDS ORDERED: 0.9 % Sodium Chloride 1,000 ML IVC SCH (22:30)
[2022-06-27] MEDS: Insulin LISPRO 300 UNITS/3 ML VIAL SUBQ SCH ×5 (00:34→20:59)
[2022-06-27] MEDS ORDERED: *HR* Heparin 5,000 UNIT/ML VIAL IVP PRN ×2 (00:46)
[2022-06-27] MEDS ORDERED: Heparin 25,000UNIT/250ML 1/2NS 25,000 UNIT/250 ML IV.SOLN IVC SCH (01:00)
[2022-06-27 03:10] LABS: Hemoglobin 9.8 g/dL (12.9-16.9); Mean Corpuscular HGB Conc 31.6 g/dL (31.6-35.5); Mean Corpuscular Hemoglobin 31.4 pg (28.0-33.3); Mean Corpuscular Volume 99.4 fL (83.0-100.0); Platelet Count 233 K/mcL (140-400); Red Blood Count 3.12 M/mcL (4.19-5.50); Red Cell Distribution Width 18.1 % (11.5-14.5); White Blood Count 7.3 K/mcL (4.3-11.1)
[2022-06-27 03:18] LABS: Heparin anti-factor XA UFH 1.75 IU/mL (0.30-0.70)
[2022-06-27 03:29] LABS: Albumin 3.5 g/dL (3.5-5.7); Albumin/Globulin Ratio 1.1 (1.1-2.2); Bilirubin,Total 0.4 mg/dL (0.3-1.0); Calcium 8.9 mg/dL (8.6-10.3); Globulin 3.1 g/dL (2.4-3.5); Magnesium 1.6 mg/dL (1.6-2.6); Phosphorous 4.2 mg/dL (2.7-4.5); Potassium 4.3 mEq/L (3.5-5.1); Total Protein 6.6 g/dL (6.4-8.9)
[2022-06-27] MEDS: Aspirin 81 MG TAB.CHEW PO SCH (09:11)
[2022-06-27] MEDS ORDERED: NON-FORMULARY MEDICATION 1 EACH EACH (Atorvastatin Calcium [Lipitor] 20 MG Tablet) PO SCH (10:15)
[2022-06-27] MEDS: Metoprolol XL (24 HR) Succ 50 MG TAB.ER.24H PO SCH (11:57)
[2022-06-27] MEDS: Heparin 25,000UNIT/250ML 1/2NS 25,000 UNIT/250 ML IV.SOLN IVC SCH (11:58)
[2022-06-27] MEDS: 0.9 % Sodium Chloride 1,000 ML IVC SCH (11:59)
[2022-06-27] MEDS: Sacubitril/Valsartan 49/51 MG 1 TABLET PO SCH (20:59)
[2022-06-28 03:16] LABS: Basophils % 0.3 %; Eosinophils % 0.1 %; Hematocrit 29.2 % (37.5-50.1); Hemoglobin 9.3 g/dL (12.9-16.9); Immature Granulocytes % 0.4 % (0-4); Lymphocytes % 14.1 %; Mean Corpuscular HGB Conc 31.8 g/dL (31.6-35.5); Mean Corpuscular Hemoglobin 32.4 pg (28.0-33.3); Mean Corpuscular Volume 101.7 fL (83.0-100.0); Mean Platelet Volume 10.2 fL (9.4-12.4); Monocytes # 0.7 K/mcL (0.0-1.3); Monocytes % 10.3 %; Neutrophils # 5.1 K/mcL (1.6-8.9); Nucleated Red Blood Cells 0.7 /100 WBC (0); Platelet Count 215 K/mcL (140-400); Red Blood Count 2.87 M/mcL (4.19-5.50); Red Cell Distribution Width 18.6 % (11.5-14.5); Segmented Neutrophils % 74.8 %; White Blood Count 6.9 K/mcL (4.3-11.1)
[2022-06-28 03:27] LABS: Calcium 8.5 mg/dL (8.6-10.3); Potassium 4.5 mEq/L (3.5-5.1)
[2022-06-28] MEDS: 0.9 % Sodium Chloride 1,000 ML IVC SCH ×2 (04:12→22:17)
[2022-06-28] MEDS: Heparin 25,000UNIT/250ML 1/2NS 25,000 UNIT/250 ML IV.SOLN IVC SCH (04:12)
[2022-06-28] MEDS ORDERED: HydrOXYzine 100 MG/2 ML VIAL IM ONE (04:24)
[2022-06-28] MEDS: Insulin LISPRO 300 UNITS/3 ML VIAL SUBQ SCH ×4 (09:52→21:07)
[2022-06-28] MEDS: Sacubitril/Valsartan 49/51 MG 1 TABLET PO SCH ×2 (10:02→21:08)
[2022-06-28] MEDS: Aspirin 81 MG TAB.CHEW PO SCH (10:02)
[2022-06-28] MEDS: Metoprolol XL (24 HR) Succ 50 MG TAB.ER.24H PO SCH (10:02)
[2022-06-28] MEDS ORDERED: Benzonatate 100 MG CAPSULE PO PRN (10:37)
[2022-06-28] MEDS ORDERED: OLANZAPINE 5 MG PO SCH (10:45)
[2022-06-28] MEDS ORDERED: Haloperidol Lactate 5 MG/ML VIAL IM STA ×2 (12:31→13:16)
[2022-06-28] MEDS: Folic Acid 1 MG TABLET PO SCH (12:41)
[2022-06-28] MEDS: clonazePAM 0.5 MG TABLET PO PRN (21:08)
[2022-06-29 01:35] LABS: White Blood Count 8.9 K/mcL (4.3-11.1)
[2022-06-29 01:36] LABS: Basophils % 0.1 %; Eosinophils % 0.1 %; Hematocrit 30.1 % (37.5-50.1); Hemoglobin 9.6 g/dL (12.9-16.9); Immature Granulocytes % 0.3 % (0-4); Lymphocytes % 11.5 %; Mean Corpuscular HGB Conc 31.9 g/dL (31.6-35.5); Mean Corpuscular Hemoglobin 32.1 pg (28.0-33.3); Mean Corpuscular Volume 100.7 fL (83.0-100.0); Mean Platelet Volume 10.4 fL (9.4-12.4); Monocytes # 0.8 K/mcL (0.0-1.3); Nucleated Red Blood Cells 0.7 /100 WBC (0); Platelet Count 221 K/mcL (140-400); Red Blood Count 2.99 M/mcL (4.19-5.50); Red Cell Distribution Width 19.2 % (11.5-14.5)
[2022-06-29 01:55] LABS: Calcium 8.5 mg/dL (8.6-10.3); Magnesium 1.6 mg/dL (1.6-2.6); Potassium 4.6 mEq/L (3.5-5.1)
[2022-06-29] MEDS: Insulin LISPRO 300 UNITS/3 ML VIAL SUBQ SCH ×4 (08:00→20:50)
[2022-06-29] MEDS: Aspirin 81 MG TAB.CHEW PO SCH (10:24)
[2022-06-29] MEDS: Folic Acid 1 MG TABLET PO SCH (10:24)
[2022-06-29] MEDS: Sacubitril/Valsartan 49/51 MG 1 TABLET PO SCH ×2 (10:24→20:57)
[2022-06-29] MEDS: Famotidine 20 MG TABLET PO SCH (10:24)
[2022-06-29] MEDS: Metoprolol XL (24 HR) Succ 50 MG TAB.ER.24H PO SCH (10:24)
[2022-06-29] MEDS: Heparin 25,000UNIT/250ML 1/2NS 25,000 UNIT/250 ML IV.SOLN IVC SCH (12:45)
[2022-06-29] MEDS: 0.9 % Sodium Chloride 1,000 ML IVC SCH (20:51)
[2022-06-29] MEDS: Melatonin 3 MG TABLET PO PRN (21:01)
[2022-06-30 02:38] LABS: Basophils % 0.1 %; Eosinophils % 0.1 %; Hematocrit 29.2 % (37.5-50.1); Hemoglobin 9.5 g/dL (12.9-16.9); Immature Granulocytes % 0.5 % (0-4); Lymphocytes # 0.6 K/mcL (0.6-4.6); Lymphocytes % 6.7 %; Mean Corpuscular HGB Conc 32.5 g/dL (31.6-35.5); Mean Corpuscular Hemoglobin 33.6 pg (28.0-33.3); Mean Corpuscular Volume 103.2 fL (83.0-100.0); Mean Platelet Volume 10.6 fL (9.4-12.4); Monocytes # 0.7 K/mcL (0.0-1.3); Monocytes % 7.7 %; Nucleated Red Blood Cells 1.3 /100 WBC (0); Platelet Count 211 K/mcL (140-400); Red Blood Count 2.83 M/mcL (4.19-5.50); Red Cell Distribution Width 19.9 % (11.5-14.5); Segmented Neutrophils % 84.9 %; White Blood Count 9.4 K/mcL (4.3-11.1)
[2022-06-30 02:47] LABS: Calcium 8.4 mg/dL (8.6-10.3); Potassium 4.9 mEq/L (3.5-5.1)
[2022-06-30] MEDS: Insulin LISPRO 300 UNITS/3 ML VIAL SUBQ SCH ×4 (07:41→20:53)
[2022-06-30] MEDS: Famotidine 20 MG TABLET PO SCH (07:43)
[2022-06-30] MEDS: Folic Acid 1 MG TABLET PO SCH (07:43)
[2022-06-30] MEDS: Sacubitril/Valsartan 49/51 MG 1 TABLET PO SCH (07:53)
[2022-06-30] MEDS: Aspirin 81 MG TAB.CHEW PO SCH (07:53)
[2022-06-30] MEDS: 0.9 % Sodium Chloride 1,000 ML IVC SCH (15:31)
[2022-06-30] MEDS ORDERED: Heparin 25,000UNIT/250ML 1/2NS 25,000 UNIT/250 ML IV.SOLN IVC SCH ×2 (16:15→16:26)
[2022-06-30] MEDS ORDERED: *HR* Heparin 5,000 UNIT/ML VIAL IVP PRN ×2 (16:15)
[2022-06-30] MEDS: Melatonin 3 MG TABLET PO PRN (20:59)
[2022-07-01] MEDS: clonazePAM 0.5 MG TABLET PO PRN ×2 (00:38→22:06)
[2022-07-01 01:10] LABS: Hematocrit 29.5 % (37.5-50.1); Hemoglobin 9.3 g/dL (12.9-16.9); Immature Granulocytes % 0.4 % (0-4); Lymphocytes # 0.5 K/mcL (0.6-4.6); Lymphocytes % 4.3 %; Mean Corpuscular HGB Conc 31.5 g/dL (31.6-35.5); Mean Corpuscular Hemoglobin 32.6 pg (28.0-33.3); Mean Corpuscular Volume 103.5 fL (83.0-100.0); Mean Platelet Volume 10.9 fL (9.4-12.4); Monocytes # 0.6 K/mcL (0.0-1.3); Monocytes % 5.4 %; Neutrophils # 10.2 K/mcL (1.6-8.9); Nucleated Red Blood Cells 2.5 /100 WBC (0); Platelet Count 191 K/mcL (140-400); Red Blood Count 2.85 M/mcL (4.19-5.50); Red Cell Distribution Width 20.2 % (11.5-14.5); Segmented Neutrophils % 89.9 %; White Blood Count 11.4 K/mcL (4.3-11.1)
[2022-07-01 01:18] LABS: Heparin anti-factor XA UFH 0.37 IU/mL (0.30-0.70); INR 2.1; Prothrombin Time 23.4 Seconds (9.4-12.1)
[2022-07-01 01:20] LABS: Activated Partial Thrombo Time 88.2 Seconds (26.0-36.0)
[2022-07-01 01:32] LABS: Calcium 8.2 mg/dL (8.6-10.3); Potassium 5.1 mEq/L (3.5-5.1)
[2022-07-01 01:48] LABS: Triiodothyronine (T3) Free 2.39 pg/mL (2.50-3.90)
[2022-07-01] MEDS: Insulin LISPRO 300 UNITS/3 ML VIAL SUBQ SCH ×4 (07:43→22:08)
[2022-07-01] MEDS: Folic Acid 1 MG TABLET PO SCH (07:57)
[2022-07-01] MEDS: Aspirin 81 MG TAB.CHEW PO SCH (07:58)
[2022-07-01] MEDS: Famotidine 20 MG TABLET PO SCH (07:58)
[2022-07-01] MEDS ORDERED: Metoprolol XL (24 HR) Succ 50 MG TAB.ER.24H PO SCH (09:00)
[2022-07-01] MEDS ORDERED: Furosemide 40 MG/4 ML VIAL IVP ONE (10:20)
[2022-07-01] MEDS ORDERED: Ipratropium/Albuterol Neb 3 ML IH PRN (14:02)
[2022-07-01] MEDS: Piperacillin/Tazobactam 3.375 GM in 0.9 % Sodium Chloride Mini Bag 100 ML IVPB SCH ×2 (15:52→23:46)
[2022-07-01] MEDS: Doxycycline 100 MG in 0.9 % Sodium Chloride Mini Bag 100 ML IVPB SCH (17:04)
[2022-07-01] MEDS: Melatonin 3 MG TABLET PO PRN (22:06)
[2022-07-02] MEDS: Famotidine 20 MG TABLET PO SCH (05:23)
[2022-07-02] MEDS: Doxycycline 100 MG in 0.9 % Sodium Chloride Mini Bag 100 ML IVPB SCH ×2 (05:51→17:55)
[2022-07-02 06:09] LABS: Basophils % 0.1 %; Eosinophils # 0.1 K/mcL (0.0-0.6); Eosinophils % 0.7 %; Hematocrit 30.6 % (37.5-50.1); Hemoglobin 9.8 g/dL (12.9-16.9); Immature Granulocytes % 0.4 % (0-4); Lymphocytes # 0.5 K/mcL (0.6-4.6); Lymphocytes % 4.4 %; Mean Corpuscular Hemoglobin 32.2 pg (28.0-33.3); Mean Corpuscular Volume 100.7 fL (83.0-100.0); Mean Platelet Volume 10.8 fL (9.4-12.4); Monocytes # 0.5 K/mcL (0.0-1.3); Monocytes % 5.1 %; Platelet Count 168 K/mcL (140-400); Red Blood Count 3.04 M/mcL (4.19-5.50); Red Cell Distribution Width 21.2 % (11.5-14.5); Segmented Neutrophils % 89.3 %; White Blood Count 10.1 K/mcL (4.3-11.1)
[2022-07-02 06:33] LABS: Potassium 5.2 mEq/L (3.5-5.1)
[2022-07-02] MEDS: Insulin LISPRO 300 UNITS/3 ML VIAL SUBQ SCH ×4 (08:49→21:11)
[2022-07-02] MEDS: Piperacillin/Tazobactam 3.375 GM in 0.9 % Sodium Chloride Mini Bag 100 ML IVPB SCH ×2 (08:52→14:29)
[2022-07-02] MEDS: Aspirin 81 MG TAB.CHEW PO SCH ×2 (08:55→09:07)
[2022-07-02] MEDS: Folic Acid 1 MG TABLET PO SCH ×2 (08:56→09:07)
[2022-07-02] MEDS ORDERED: Morphine Sulfate 2 MG/ML SYRINGE IVP PRN ×2 (16:45→18:55)
[2022-07-02] MEDS ORDERED: D5% in 0.9% NACL 1,000 ML IVC SCH (16:45)
[2022-07-02] MEDS ORDERED: Morphine Sulfate 2 MG/ML SYRINGE IVP ONE (18:54)
[2022-07-02] MEDS: Ipratropium/Albuterol Neb 3 ML IH SCH (20:47)
[2022-07-03] MEDS: Ipratropium/Albuterol Neb 3 ML IH SCH ×6 (00:02→19:34)
[2022-07-03] MEDS ORDERED: Albumin Human 5% 12.5 GM/250 ML IV.SOLN IVC SCH (01:00)
[2022-07-03] MEDS: Piperacillin/Tazobactam 3.375 GM in 0.9 % Sodium Chloride Mini Bag 100 ML IVPB SCH ×2 (02:01→14:38)
[2022-07-03 03:31] LABS: Basophils % 0.1 %; Eosinophils # 0.1 K/mcL (0.0-0.6); Eosinophils % 0.7 %; Hematocrit 30.1 % (37.5-50.1); Hemoglobin 9.4 g/dL (12.9-16.9); Immature Granulocytes % 0.4 % (0-4); Lymphocytes # 0.4 K/mcL (0.6-4.6); Lymphocytes % 4.6 %; Mean Corpuscular HGB Conc 31.2 g/dL (31.6-35.5); Mean Corpuscular Volume 102.4 fL (83.0-100.0); Monocytes # 0.6 K/mcL (0.0-1.3); Monocytes % 6.7 %; Neutrophils # 7.8 K/mcL (1.6-8.9); Nucleated Red Blood Cells 0.8 /100 WBC (0); Platelet Count 136 K/mcL (140-400); Red Blood Count 2.94 M/mcL (4.19-5.50); Red Cell Distribution Width 21.5 % (11.5-14.5); Segmented Neutrophils % 87.5 %; White Blood Count 8.9 K/mcL (4.3-11.1)
[2022-07-03] MEDS: Famotidine 20 MG TABLET PO SCH (03:46)
[2022-07-03 03:58] LABS: Calcium 8.2 mg/dL (8.6-10.3); Potassium 5.5 mEq/L (3.5-5.1)
[2022-07-03] MEDS: Doxycycline 100 MG in 0.9 % Sodium Chloride Mini Bag 100 ML IVPB SCH (06:12)
[2022-07-03] MEDS ORDERED: Calcium Gluconate 1gm/50mL 1 GM/50 ML BAG IVPB ONE (07:18)
[2022-07-03 08:34] VITALS: BP 93/31; PULSE 60; TEMP 98.8
[2022-07-03] MEDS: Insulin LISPRO 300 UNITS/3 ML VIAL SUBQ SCH ×2 (09:02→14:33)
[2022-07-03] MEDS: Aspirin 81 MG TAB.CHEW PO SCH (09:03)
[2022-07-03] MEDS: Folic Acid 1 MG TABLET PO SCH (09:03)
[2022-07-03] MEDS ORDERED: Morphine Sulfate Oral CONC 10 MG/0.5 ML ORAL.SYG SL PRN (11:31)
[2022-07-03] MEDS: Haloperidol Oral Conc 10 MG/5 ML UDC PO PRN ×2 (12:48→19:30)
[2022-07-03 19:40] VITALS: O2SAT 94
== END 2022-07-03 20:32 | disposition hospice, home (50) | DRG 177 ==
LOC: EMEROOARM 15:58 → 2NENU 21:53 → SUATTDRO 21:53 → 2NENU 22:50
PROVIDERS: ADMIT Internal Medicine; ATTEND Pharmacist